=== PATIENT | male | born 1935 | race Caucasian/White ===

== ENCOUNTER 2017-05-18 14:59 | Inpatient (IN) | payer MEDICARE, OTHER ==
[2017-05-19 14:15] VITALS: BMI 22.8
[2017-05-19] MEDS ORDERED: Pneumococcal 23-Valent Vaccine IM ONE (19:30)
--- NOTE | 2017-05-19 20:56 | CP.PCM.CON ---
History of Present Illness - History of Present Illness History of Present Illness: patient is a 81 year citizen of [place] speaking patient admitted from [facility] with diagnosis of acute CVA. Ct with left cerebellar infarction (05/14) and a previous Ct L PIca infarction involving posterior inferior cerebellar hemisphere Review of Systems - Musculoskeletal Musculoskeletal: Abnormal Gait, Muscle Weakness - Neurological Neurological: Abnormal Gait Past Patient History - Infectious Disease Hx of Infectious Diseases: None - Past Medical History & Family History Past Medical History?: Yes - Past Social History Smoking Status: Never Smoked - CARDIAC Hx Hypercholesterolemia: Yes Hx Hypertension: Yes - PULMONARY Hx Respiratory Disorders: No - NEUROLOGICAL Hx Neurological Disorder: No - HEENT Hx Cataracts: Yes - RENAL Hx Chronic Kidney Disease: No - ENDOCRINE/METABOLIC Hx Endocrine Disorders: No - HEMATOLOGICAL/ONCOLOGICAL Hx Blood Disorders: No - INTEGUMENTARY Hx Dermatological Problems: No - MUSCULOSKELETAL/RHEUMATOLOGICAL Hx Musculoskeletal Disorders: No Hx Falls: Yes - GASTROINTESTINAL Hx Gastroesophageal Reflux: Yes Other/Comment: peptic ulcer, Hx meg-mane tear - GENITOURINARY/GYNECOLOGICAL Hx Genitourinary Disorders: Yes Other/Comment: Unrinary retention - PSYCHIATRIC Hx Psychophysiologic Disorder: Yes Hx Depression: Yes Hx Substance Use: No - SURGICAL HISTORY Hx Surgeries: No - ANESTHESIA Hx Anesthesia: Yes Hx Anesthesia Reactions: No Meds Allergies/Adverse Reactions: Allergies Allergy/AdvReac Type Severity Reaction Status Date / Time No Known Allergies Allergy Verified 05/19/17 13:35 - Medications Medications: Current Medications Acetaminophen (Tylenol 325mg Tab) 650 mg PO Q6 PRN PRN Reason: Headache Aspirin (Aspirin Chewable) 81 mg PO DAILY [facility] Atorvastatin Calcium (Lipitor) 20 mg PO HS [facility] Clopidogrel Bisulfate (Plavix) 75 mg PO DAILY [facility] Enoxaparin Sodium (Lovenox) 30 mg SC DAILY [facility] PRN Reason: Protocol Famotidine (Pepcid) 20 mg PO Q12 [facility] Losartan Potassium (Cozaar) 100 mg PO DAILY [facility] Metoclopramide HCl (Reglan) 5 mg PO Q8 [facility] Nitroglycerin (Nitro-Bid 2% Oint) 1 ea TOP Q6 PRN PRN Reason: IF SBP ABOVE 160 Ondansetron HCl (Zofran Tab) 4 mg PO Q6 PRN PRN Reason: Nausea/Vomiting Sucralfate (Carafate Oral Susp) 1 gm PO ACHS [facility] Tamsulosin HCl (Flomax) 0.4 mg PO HS [facility] Physical Exam - Head Exam Head Exam: ATRAUMATIC, NORMAL INSPECTION Additional comments: status post facial droop - Eye Exam Pupil Exam: NORMAL ACCOMODATION - ENT Exam ENT Exam: Mucous Membranes Moist, Normal Exam - Neck Exam Neck exam: Positive for: Normal Inspection - Respiratory Exam Respiratory Exam: Clear to Auscultation Bilateral, NORMAL BREATHING PATTERN - Cardiovascular Exam Cardiovascular Exam: REGULAR RHYTHM - GI/Abdominal Exam GI & Abdominal Exam: Normal Bowel Sounds - Rectal Exam Rectal Exam: NORMAL INSPECTION - Exam External exam: NORMAL EXTERNAL EXAM Additional comments: muscle strength fair upper and lower - Extremities Exam Extremities exam: Positive for: normal inspection - Back Exam Back exam: NORMAL INSPECTION - Neurological Exam Neurological exam: Alert, Reflexes Normal - Psychiatric Exam Psychiatric exam: Normal Affect - Skin Skin Exam: Dry, Normal Color Results - Vital Signs Recent Vital Signs: Last Vital Signs Temp 98.0 F 05/19/17 20:41 Pulse 77 05/19/17 20:41 Resp 20 05/19/17 20:41 BP 131/75 05/19/17 20:41 Pulse Ox 95 05/19/17 20:41 Assessment & Plan (1) CVA (cerebral vascular accident) Assessment and Plan: plan for physical, occupational, recreational and speech therapy . Goals for Modified independent to write for overall plan of care Status: Acute Priority: High (2) Ischemic stroke Status: Acute (3) Hyperlipidemia Status: Chronic Priority: Medium (4) Hypertension Status: Chronic Priority: Medium Physiatry Overall Plan of Care - Overall Plan of Care Estimated Length of Stay in Weeks: 2 Rehab Impairment: Mobility, Gait, Balance Etiologic Diagnosis: Cerebrovascular Accident Rehab/Medical Prognosis: Fair - Anticipated Interventions Physical Therapy:: Yes Occupational Therapy:: Yes Speech Therapy:: Yes Recreational Therapy:: Yes - Therapy Goals Bed Mobility: Independent Ambulation: Independent Functional Positional Changes:: Independent - Functional Outcomes Functional Outcomes: fair - Discharge Plan Discharge Destination: Home
[2017-05-19] MEDS: Sucralfate 1 gm/10 ml Oral Susp UD PO SCH (21:14)
[2017-05-20] MEDS: Sucralfate 1 gm/10 ml Oral Susp UD PO SCH ×4 (06:50→22:31)
--- NOTE | 2017-05-20 08:21 | PN ---
SUBJECTIVE: The patient feels better. No dizziness. No chest pain and no headache. PHYSICAL EXAMINATION VITAL SIGNS: Blood pressure 122/75, heart rate is 73, temperature 98.1, respirations 20. HEENT: Normocephalic. CHEST: Clear. HEART: S1 and S2 regular. ABDOMEN: Soft. EXTREMITIES: No edema. ASSESSMENT: 1. Syncopal episode. 2. Left large cerebellar cerebrovascular accident. 3. Hypertension. RECOMMENDATIONS: Continue current aspirin, Plavix, Cozaar, and prophylactic subcutaneous Lovenox. PLAN: The plan is to transfer the patient to rehab. No further cardiac workup is indicated at this time. Anurag Davalos MD
[2017-05-20] MEDS ORDERED: Enoxaparin 30 mg Syringe SC SCH (09:00)
--- NOTE | 2017-05-20 11:56 | CP.PCM.HP ---
History of Present Illness - History of Present Illness History of Present Illness: This is an 81 y/o male admitted for acute rehab after a CVA resulting to poor balance standing and walking, He was admitted to [facility] for CVA and was given TPA, He presented with facial droop and weakness of both extremities. He responded very well and was transferred to rehab Has a hx of HTN and hyperlipidemia. Present on Admission - Present on Admission Any Indicators Present on Admission: No History of DVT/PE: No History of Uncontrolled Diabetes: No Urinary Catheter: No Decubitus Ulcer Present: No Review of Systems - Constitutional Constitutional: Malaise, Weakness - Neurological Neurological: Abnormal Gait, Lack of Coordination Past Patient History - Infectious Disease Hx of Infectious Diseases: None - Past Medical History & Family History Past Medical History?: Yes - Past Social History Smoking Status: Never Smoked - CARDIAC Hx Hypercholesterolemia: Yes Hx Hypertension: Yes - PULMONARY Hx Respiratory Disorders: No - NEUROLOGICAL Hx Neurological Disorder: No - HEENT Hx Cataracts: Yes - RENAL Hx Chronic Kidney Disease: No - ENDOCRINE/METABOLIC Hx Endocrine Disorders: No - HEMATOLOGICAL/ONCOLOGICAL Hx Blood Disorders: No - INTEGUMENTARY Hx Dermatological Problems: No - MUSCULOSKELETAL/RHEUMATOLOGICAL Hx Musculoskeletal Disorders: No Hx Falls: Yes - GASTROINTESTINAL Hx Gastroesophageal Reflux: Yes Other/Comment: peptic ulcer, Hx meg-mane tear - GENITOURINARY/GYNECOLOGICAL Hx Genitourinary Disorders: Yes Other/Comment: Unrinary retention - PSYCHIATRIC Hx Psychophysiologic Disorder: Yes Hx Depression: Yes Hx Substance Use: No - SURGICAL HISTORY Hx Surgeries: No - ANESTHESIA Hx Anesthesia: Yes Hx Anesthesia Reactions: No Meds Allergies/Adverse Reactions: Allergies Allergy/AdvReac Type Severity Reaction Status Date / Time No Known Allergies Allergy Verified 05/22/17 08:09 Physical Exam - Head Exam Head Exam: NORMAL INSPECTION - Eye Exam Eye Exam: Normal appearance - ENT Exam ENT Exam: Mucous Membranes Moist - Respiratory Exam Respiratory Exam: Clear to Auscultation Bilateral - Cardiovascular Exam Cardiovascular Exam: REGULAR RHYTHM - GI/Abdominal Exam GI & Abdominal Exam: Normal Bowel Sounds - Neurological Exam Neurological exam: Abnormal Gait, Alert - Psychiatric Exam Psychiatric exam: Flat Affect Results - Vital Signs Recent Vital Signs: Last Vital Signs Temp 97.5 F L 05/20/17 08:02 Pulse 63 05/20/17 09:10 Resp 20 05/20/17 08:02 BP 142/89 05/20/17 09:10 Pulse Ox 96 05/20/17 08:02 - Labs Result Diagrams: 05/22/17 05:30 05/22/17 05:30 Assessment & Plan (1) Gait disturbance, post-stroke Status: Acute (2) CVA (cerebral vascular accident) Status: Acute Priority: High (3) Hyperlipidemia Status: Chronic Priority: Medium (4) Hypertension Status: Chronic Priority: Medium - Assessment and Plan (Free Text) Plan: start PT cont meds Cont tx BVP meds checjk labs Neuro consult.
[2017-05-20] MEDS: Enoxaparin 40 mg Syringe SC SCH (12:20)
[2017-05-21] MEDS: Sucralfate 1 gm/10 ml Oral Susp UD PO SCH ×4 (07:10→21:01)
[2017-05-21] MEDS: Enoxaparin 40 mg Syringe SC SCH (08:30)
[2017-05-21 21:10] VITALS: RESP 20
[2017-05-22] MEDS: Nitroglycerin 2% Ointment Foilpak UD TOP PRN ×2 (00:10→06:10)
[2017-05-22 02:30] VITALS: O2SAT 96
[2017-05-22 06:11] VITALS: PULSE 104
[2017-05-22] MEDS: Sucralfate 1 gm/10 ml Oral Susp UD PO SCH (06:54)
[2017-05-22 07:23] LABS: HEMATOCRIT 48.2 % (35.0-51.0); MEAN CELL VOLUME 93.1 fl (80.0-94.0); MEAN CORPUSCULAR HEMOGLOBIN 32.2 pg (27.0-31.0); MEAN CORPUSCULAR HGB CONC 34.6 g/dL (33.0-37.0); WHITE BLOOD COUNT 8.4 K/uL (4.8-10.8)
[2017-05-22 07:34] LABS: BLOOD UREA NITROGEN 10 mg/dl (9-20); CARBON DIOXIDE 28 mmol/L (22-30); CHLORIDE 98 mmol/L (98-107); GFR AFRICAN-AMERICAN > 60; GLUCOSE,RANDOM 137 mg/dL (75-110); POTASSIUM 3.9 MMOL/L (3.6-5.0); SODIUM 138 mmol/l (132-148)
--- NOTE | 2017-05-22 08:00 | PCM.RRTMUL ---
ART EDUCATOR Nurse Assessment - Situation ART EDUCATOR Reason for Call: Change in Mental Status ART EDUCATOR Called By: RN - IV IV Inserted during ART EDUCATOR?: Yes - Respiratory Oxygen Delivery Method:: Nasal Cannula Received Nebulizer Treatments:: No Was the Patient Ventilated with Bag/Mask 100% O2?: No Was the Patient Intubated?: No Was the Patient Placed on a Ventilator?: No - Diagnostic Test Ordered CT Scan:: Yes (CT head without contrast) CPR started during ART EDUCATOR?: No - Vital Signs Blood Pressure:: 176/110 Pulse Rate:: 104 - Sly Coma Scale Coma Scale Eye Opening:: Spontaneous Coma Scale Motor:: Obeys Commands Movement Coma Scale Verbal:: Incomprehensible speech (oriented to self/stated name and ; rest of speech incomprehensible) Coma Scale Total:: 12 - Recommendations 5) ART EDUCATOR Level of Care Recommendations: Discharge to Emergency Room 6) Notifications: Attending Physician I.Reason for ART EDUCATOR - A) Acute Change in Patient: (Select all that apply): Acute change in mental status - B) Neurological Status (Select all that apply): Responsive, Oriented (to self (states name and ), rest of speech incomprehensible), Verbal (slurred speech, incomprehensible), Follows Commands, Lethargic. absent: Weakness (strength 5/5 in upper and lower extremities, CN II-XII intact) - C) Respiratory Oxygen Delivery Method: Room Air, Nasal Cannula @L/min - Constitutional Appears: No Acute Distress, Other (lethargic) - Head Head Exam: ATRAUMATIC, NORMOCEPHALIC - Eyes Eye Exam: EOMI, PERRL - Respiratory Exam Respiratory Exam: Clear to Ausculation Bilateral, NORMAL BREATHING PATTERN. absent: Rhonchi, Wheezes - Cardiovascular Exam Cardiovascular Exam: REGULAR RHYTHM, +S1, +S2. absent: Murmur - GI/Abdominal Exam GI & Abdominal Exam: Soft, Normal Bowel Sounds. absent: Tenderness - Neurological Exam Neurological Exam: Awake (lethargic, slurred speech, oriented to self (states name and )), CN II-XII Intact (strength 5/5 in upper and lower extremities, as well as facial muscles) - Extremities Exam Extremities Exam: Full ROM Plan - A. End of ART EDUCATOR Vital Signs: Blood Pressure: 148/108 Pulse Rate: 104 Temperature: 97.7 F O2 Sat by Pulse Oximetry: 97 - B. Assessment of Findings&Treatment Plan 81 yr old M with new onset AMS and slurred speech, admitted to acute rehab for CVA with left hemiparesis and poor balance, has PMHx peptic ulcer, Mattie Salinas tear and urinary retention. Patient is lethargic, oriented to self ( reports name and ), follow all commands, denies chest pain or weakness, rest of speech is incomprehensible. Patients labs this AM showed CBC and BMP within normal limits, random glucose 137 mg/dL, duplicating machine servicer showed sinus tachycardia with HR 104, leo catheter draining clear yellow urine. Patient was sent for CT head without contrast and to ER for further evaluation.
[2017-05-22 08:27] VITALS: BP 148/108; TEMP 97.7
--- NOTE | 2017-05-22 09:34 | CT ---
PROCEDURE: CT HEAD WITHOUT CONTRAST. HISTORY: Altered mental status COMPARISON: Comparison is made to the prior CT scan performed at [facility] from 05/12/2017 TECHNIQUE: Axial computed tomography images were obtained through the head/brain without intravenous contrast. Radiation dose: Total exam DLP = 1068.25 mGy-cm. This CT exam was performed using one or more of the following dose reduction techniques: Automated exposure control, adjustment of the mA and/or kV according to patient size, and/or use of iterative reconstruction technique. FINDINGS: HEMORRHAGE: There is a large acute parenchymal hemorrhage in the left cerebellar hemisphere with mass effect and effacement of the 4th ventricle and resultant obstructive hydrocephalus. BRAIN: There is mass effect on the anjelica and midbrain and mild supra tentorial herniation. VENTRICLES: There is mild age-related global parenchymal volume loss and proportional enlargement of the cortical sulci. CALVARIUM: Unremarkable. PARANASAL SINUSES: Unremarkable as visualized. No significant inflammatory changes. MASTOID AIR CELLS: Unremarkable as visualized. No inflammatory changes. 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 Also noted is mass effect on the anjelica and midbrain and supra tentorial herniation. Important findings were discussed with Dr. Jacome in the ER on 05/22/2017 at 9:30 a.m.
--- NOTE | 2017-05-22 10:37 | CP.PCM.PN ---
Subjective - Date & Time of Evaluation Date of Evaluation: 05/21/17 Time of Evaluation: 09:30 - Subjective Subjective: Patient showed a lot of problem with balance and coordination. He participates and follows commands but looks depressed. Has no chest pain or headaches Has no fever. BP has been stable. Objective - Vital Signs/Intake and Output Vital Signs (last 24 hours): Temp Pulse Resp BP Pulse Ox 97.7 F 104 H 20 148/108 H 96 05/22/17 08:22 05/22/17 08:22 05/22/17 02:00 05/22/17 08:22 05/22/17 02:00 Intake and Output: 05/22/17 05/22/17 06:59 18:59 Intake Total 120 Output Total 500 Balance -380 - Labs Labs: 05/22/17 05:30 05/22/17 05:30 - Head Exam Head Exam: NORMAL INSPECTION - Eye Exam Eye Exam: Normal appearance - ENT Exam ENT Exam: Mucous Membranes Moist - Respiratory Exam Respiratory Exam: Clear to Ausculation Bilateral - Cardiovascular Exam Cardiovascular Exam: REGULAR RHYTHM - GI/Abdominal Exam GI & Abdominal Exam: Normal Bowel Sounds - Neurological Exam Neurological Exam: Awake - Psychiatric Exam Psychiatric exam: Depressed Assessment and Plan (1) Gait disturbance, post-stroke Status: Acute (2) CVA (cerebral vascular accident) Status: Acute (3) Hyperlipidemia Status: Chronic (4) Hypertension Status: Chronic - Assessment and Plan (Free Text) Plan: Cont meds Cont tx Cont PT BP meds.
--- NOTE | 2017-05-26 23:47 | CP.PCM.DIS ---
Provider - Provider Date of Admission: 05/19/17 15:44 Attending physician: Gerhard Delong MD Time Spent in preparation of Discharge (in minutes): 25 Hospital Course - Lab Results Lab Results: Most Recent Lab Values WBC 8.4 K/uL (4.8-10.8) 05/22/17 05:30 RBC 5.17 Mil/uL (4.40-5.90) 05/22/17 05:30 Hgb 16.7 g/dL (12.0-18.0) 05/22/17 05:30 Hct 48.2 % (35.0-51.0) 05/22/17 05:30 MCV 93.1 fl (80.0-94.0) 05/22/17 05:30 MCH 32.2 pg (27.0-31.0) H 05/22/17 05:30 MCHC 34.6 g/dL (33.0-37.0) 05/22/17 05:30 RDW 13.0 % (11.5-14.5) 05/22/17 05:30 Plt Count 219 K/uL (130-400) 05/22/17 05:30 Sodium 138 mmol/l (132-148) 05/22/17 05:30 Potassium 3.9 MMOL/L (3.6-5.0) 05/22/17 05:30 Chloride 98 mmol/L (98-107) 05/22/17 05:30 Carbon Dioxide 28 mmol/L (22-30) 05/22/17 05:30 Anion Gap 16 (10-20) 05/22/17 05:30 BUN 10 mg/dl (9-20) 05/22/17 05:30 Creatinine 0.9 mg/dL (0.8-1.5) 05/22/17 05:30 Est GFR ( Amer) > 60 05/22/17 05:30 Est GFR (Non-Af Amer) > 60 05/22/17 05:30 POC Glucose (mg/dL) 129 mg/dL (65-110) H 05/22/17 07:31 Random Glucose 137 mg/dL (75-110) H 05/22/17 05:30 Calcium 10.0 mg/dL (8.4-10.2) 05/22/17 05:30 Discharge Exam - Head Exam Head Exam: NORMAL INSPECTION Discharge Plan - Follow Up Plan Condition: GOOD Disposition: Trans to Other Acute Care Hosp
== END 2017-05-22 07:48 | disposition short-term general hospital (02) | DRG 57 ==
PROVIDERS: ADMIT Internal Medicine; ATTEND Internal Medicine
PROC: 3E0234Z Introduction of Serum, Toxoid and Vaccine into Muscle, Percutaneous Approach (ICD-10-PCS; principal; 2017-05-19)
PROC: F08Z1FZ Dressing Techniques Treatment using Assistive, Adaptive, Supportive or Protective Equipment (ICD-10-PCS; 2017-05-19)
PROC: F07Z5FZ Bed Mobility Treatment using Assistive, Adaptive, Supportive or Protective Equipment (ICD-10-PCS; 2017-05-19)
PROC: F07L6FZ Therapeutic Exercise Treatment of Musculoskeletal System - Lower Back / Lower Extremity using Assistive, Adaptive, Supportive or Protective Equipment (ICD-10-PCS; 2017-05-19)
PROC: F07Z9FZ Gait Training/Functional Ambulation Treatment using Assistive, Adaptive, Supportive or Protective Equipment (ICD-10-PCS; 2017-05-19)
DX: I69.398 Other sequelae of cerebral infarction (principal); G91.1 Obstructive hydrocephalus; I69.354 Hemiplegia and hemiparesis following cerebral infarction affecting left non-dominant side; I10 Essential (primary) hypertension; R53.83 Other fatigue; R26.89 Other abnormalities of gait and mobility; Z23 Encounter for immunization; R47.81 Slurred speech; E78.5 Hyperlipidemia, unspecified; R41.82 Altered mental status, unspecified; Z87.11 Personal history of peptic ulcer disease